=== PATIENT | male | born 1995 | race African-American/Black ===

== ENCOUNTER 2022-01-16 02:59 | Emergency (ER) | payer MEDICAID ==
[~2022-01-16] VITALS: Ht 170.2 cm; Wt 60.1 kg
[2022-01-16] MEDS ORDERED: PSEU120T56 MT (05:04)
[2022-01-16 06:01] VITALS: BP 112/75
== END 2022-01-16 06:00 | disposition home or self-care (01) ==
LOC: ER 02:59
DX: R09.81 Nasal congestion (principal); R05.9 Cough, unspecified; J45.909 Unspecified asthma, uncomplicated; D64.9 Anemia, unspecified
CPT/HCPCS: 71045; 99283

== ENCOUNTER 2022-03-22 23:09 | Emergency (ER) | payer MEDICAID ==
[~2022-03-22] VITALS: Ht 170.2 cm; Wt 63.0 kg
[~2022-03-22 23:09] MED LIST: PSEU120T56 MT
[2022-03-23] MEDS ORDERED: ACETAMINOPHEN WITH CODEINE 300/30MG TABLET PO ONE (01:00)
[2022-03-23 01:05] VITALS: BP 126/74
[2022-03-23] MEDS ORDERED: TOPUD PO (01:07)
[2022-03-23] MEDS ORDERED: HYDR453.3 TP (01:07)
== END 2022-03-23 01:26 | disposition home or self-care (01) ==
LOC: ER 23:09
DX: L73.9 Follicular disorder, unspecified (principal); D64.9 Anemia, unspecified; J45.909 Unspecified asthma, uncomplicated
CPT/HCPCS: 99282

== ENCOUNTER 2022-06-24 19:07 | Emergency (ER) | payer MEDICAID, OTHER ==
[~2022-06-24] VITALS: Ht 170.2 cm; Wt 82.0 kg
[~2022-06-24 19:07] MED LIST changes: +HYDR453.3 TP; +TOPUD PO
[2022-06-25 03:49] LABS: HEMATOCRIT. 35.8 % (42.0-52.0); HEMOGLOBIN. 11.7 g/dL (14.0-18.0); MEAN CORPUSCULAR HEMOGLOBIN 30.1 pg (28.0-32.0); MEAN CORPUSCULAR VOLUME 92.3 fL (80.0-94.0); PLATELET 218 x1000/uL (130-400); RED BLOOD CELL COUNT 3.88 mill/uL (4.7-6.1); RED CELL DISTRIBUTION WIDTH 12.5 % (11.6-14.6)
[2022-06-25 03:59] LABS: CHLORIDE 101 mEq/L (98-107)
[2022-06-25 04:06] LABS: ETHANOL BLOOD < 10 mg/dL
[2022-06-25] MEDS ORDERED: IBUPROFEN 600MG TABLET PO STA (04:17)
[2022-06-25 04:34] LABS: PLATELET ESTIMATE NORMAL
[2022-06-25 04:38] VITALS: BP 135/75
[2022-06-25 05:09] LABS: *AMPHETAMINES SCREEN URINE PRESUMTIVE POSITIVE (NEGATIVE); *BARBITURATES SCREEN URINE NEGATIVE (NEGATIVE); *BENZODIAZEPINES SCREEN URINE NEGATIVE (NEGATIVE); *COCAINE SCREEN URINE NEGATIVE (NEGATIVE); CANNABINOID URINE SCREEN NEGATIVE (NEGATIVE); METHADONE URINE SCREEN NEGATIVE (NEGATIVE); OPIATES URINE SCREEN NEGATIVE (NEGATIVE); PHENCYCLIDINE URINE SCREEN NEGATIVE (NEGATIVE)
[2022-06-25 05:31] LABS: CLARITY URINE CLEAR (CLEAR); COLOR URINE DARK YELLOW (YELLOW); KETONES URINE TRACE (NEGATIVE); LEUKOCYTE ESTERASE URINE NEGATIVE (NEGATIVE); NITRITE URINE NEGATIVE (NEGATIVE); OCCULT BLOOD URINE NEGATIVE (NEGATIVE); PROTEIN URINE 1+ (NEGATIVE); SPECIFIC GRAVITY URINE 1.035 (1.005-1.030)
[2022-06-25] MEDS ORDERED: D-ME473S50 PO (05:57)
[2022-06-25] MEDS ORDERED: NAPR-681 PO (05:57)
== END 2022-06-25 06:12 | disposition home or self-care (01) ==
LOC: ER 19:07
DX: J06.9 Acute upper respiratory infection, unspecified (principal); F15.90 Other stimulant use, unspecified, uncomplicated; Z20.822 Contact with and (suspected) exposure to COVID-19
CPT/HCPCS: 36415; 71045; 80053; 80305; 80320; 81003; 85025; 87426; 87804; 99284; C9803; G0480